=== PATIENT | female | born 1930 | race Caucasian/White ===

== ENCOUNTER 2017-02-09 05:28 | Observation (INO) | payer OTHER ==
[2017-02-09] VITALS (10 sets, daily range): BP systolic 110–147; BP diastolic 52–85
[~2017-02-09] VITALS: Ht 160 cm; Wt 59.9 kg
--- NOTE | ~2017-02-09 | O ---
[facility] [place] [address] OPERATIVE REPORT Name: NORA OAKLEY Room #: 402-P [facility] M.R.#: [id number] Admission: 02/09/17 Attend Phys: Gregory Denis MD Discharge: Date of : 34 Report #: [id number] THIS REPORT FOR: //name// CC: FAM stephanie Denis DATE OF SERVICE: 02/09/2017 PREOPERATIVE DIAGNOSIS: Right inguinal hernia. POSTOPERATIVE DIAGNOSIS: Right direct and indirect inguinal hernia. PROCEDURES PERFORMED: Repair of right inguinal hernia with large Prolene hernia system. ANESTHESIA: General. COMPLICATIONS: None. ESTIMATED BLOOD LOSS: 5 mL. PROCEDURE NOTE: With the patient under general anesthesia, the abdomen was prepped and draped in sterile fashion. IV antibiotic was administered. Timeout was performed. A transverse incision was made in the right lower quadrant just above the pubic bone. This was about a 5 cm incision. After incising through the skin and subcutaneous tissue, scarpas layer was entered. The superficial vein was clamped and ligated with 3-0 Vicryl tie. The external oblique fascia was isolated. An external oblique was opened along the length ____ opening the external ring. The bulgy tissue was identified. It was very difficult to identify normal anatomy and it seemed like the whole floor was markedly attenuated and dissipated. The bulge was both in the direct and indirect component. The round ligament was actually very thin and pushed off anteriorly and this was isolated. The ilioinguinal nerve was found and preserved. The round ligament was isolated, clamped proximally and distally and then ligated with 3-0 Vicryl tie. Dissecting of the posterior wall which was quite thin allowed entrance to the properitoneal space. The pubic bone was isolated. The artery was palpated and identified. The vein was not visualized. The femoral region was examined, there was no femoral hernia. The hernia content was freed from the medial edge of the defect and then also laterally. The small vein was found and this had to be divided. There was some distortion of the tissue because of the quite thinness of the wall. After freeing everything from the hernia content, the hernia was able to be reduced behind the wall in the properitoneal space. Hemostasis was checked and noted to be at excellent. The large hernia Prolene system was used. The circular piece was then placed over the hernia content in the properitoneal space. A single anchoring stitch was [address] [address] OPERATIVE REPORT Name: NORA OAKLEY Room #: 402-P [facility] Tonny Robertson#: [id number] Admission: 02/09/17 Attend Phys: Gregory Denis MD Discharge: Date of : 34 Report #: [id number] placed medial inferiorly to the pubic tubercle area. This was a 0-Prolene suture. Rest of the circular part was opened up in the properitoneal space and noted to be quite supportive and keeping things from popping out. The oval anterior part of the mesh was then laid over the remaining of the floor, which was ____. The oval portion was then sutured to the pubic tubercle, inguinal ligament in a running fashion inferior and laterally. Medially and superiorly the mesh was sutured to the fascia over the anterior rectus sheath. This was performed in an interrupted fashion. Care was taken to avoid the hypogastric nerve. The mesh was able to be completely covering the internal ring and the defect well. Irrigation was performed. External oblique fascia was closed with 3-0 PDS. Subq was also closed with 3-0 PDS in an interrupted fashion. Skin was closed with 5-0 PDS. Dermabond was applied, 4 x 4, OpSite used for dressing. The patient tolerated the procedure well. By: [id number] Gregory Denis MD /nt
[~2017-02-09 05:28] MED LIST: ASPIR 8181 MG PO; CENTRUM SILVER1 EAC4 PO; CLARITIN10 MG PO; COREG PO; COZAAR100 MG PO; FLONASE 0.05%50 MCG NASAL; LIPITOR 20 MG T20 M1 PO; LUTEIN-ZEAXANT1 EACH PO; MOBIC15 MG PO; NORVASC10 MG PO; OMEPRAZOLE40 MG PO; STOOL SOFTENER100 M1 PO; SYNTHROID25 MCG PO; TRAMADOL 50 MG50 MG PO; VESICARE 5 MG TA5 MG PO; XALATAN2.5 ML OPHTHALMIC
[2017-02-10 03:06] VITALS: BP 124/80
[2017-02-10 08:00] VITALS: BP 112/52
[2017-02-10] MEDS ORDERED: NORCO 5-325 TA1 EACH PO (11:47)
[2017-02-10 11:54] VITALS: BP 112/52
== END 2017-02-10 13:42 | disposition home or self-care (01) ==
LOC: TBA 05:28 → OR 05:28 → 4N 12:46 → OR 14:29 → 4N 02-10 13:42
DX: K40.90 Unilateral inguinal hernia, without obstruction or gangrene, not specified as recurrent (principal); I10 Essential (primary) hypertension; K21.9 Gastro-esophageal reflux disease without esophagitis
CPT/HCPCS: 50010; 50101; 50411; 50555; 52061; 53307; 54118; 56462; 56525; 56526; 56527; 62110; 62900; 70005

== ENCOUNTER → 2020-04-14 | Outpatient (CLI) | payer OTHER ==
[~2020-04-14] MED LIST changes: +NORCO 5-325 TA1 EACH PO
== END ==
LOC: SJCVCIMAG 07:29
PROVIDERS: ATTEND Internal Medicine Cardiovascular Disease
DX: I72.3 Aneurysm of iliac artery (principal); I73.9 Peripheral vascular disease, unspecified; I25.10 Atherosclerotic heart disease of native coronary artery without angina pectoris; I10 Essential (primary) hypertension; E78.00 Pure hypercholesterolemia, unspecified; Z79.899 Other long term (current) drug therapy; Z87.891 Personal history of nicotine dependence

== ENCOUNTER → 2020-04-23 | Outpatient (CLI) | payer OTHER ==
[~2020-04-23] VITALS: Ht 157.5 cm; Wt 54.9 kg
[~2020-04-23] MED LIST changes: +LUCENTIS0.3 MG/0.1 INTRAVITR; +MYRBETRIQ25 MG PO; +PLAVIX 75 MG TA75 MG PO; +PRAVASTATIN SOD20 MG PO; +RESTASIS MULTI5.5 ML OPHTHALMIC
[2020-04-23 10:27] VITALS: BP 147/62
[2020-04-23 11:26] LABS: HEMATOCRIT 35.2 % (37.0-47.0); HEMOGLOBIN 11.6 gm/dL (12.0-15.0); MCH 29.3 pg (26.0-34.0); MCHC 33.1 g/dL (28.0-37.0); MCV 88.7 fL (80.0-100.0); RBC 3.97 mil/uL (4.20-5.00); RDW 13.3 % (10.5-14.5)
[2020-04-23 11:34] LABS: CALCIUM 8.7 mg/dL (8.5-10.1)
== END | disposition home or self-care (01) ==
LOC: CATH 08:56
PROVIDERS: Nuclear Medicine Nuclear Cardiology; ATTEND Internal Medicine Cardiovascular Disease
DX: I70.213 Atherosclerosis of native arteries of extremities with intermittent claudication, bilateral legs (principal); I70.8 Atherosclerosis of other arteries; I72.3 Aneurysm of iliac artery; I70.1 Atherosclerosis of renal artery; I10 Essential (primary) hypertension; E78.00 Pure hypercholesterolemia, unspecified; K21.9 Gastro-esophageal reflux disease without esophagitis; H40.9 Unspecified glaucoma; Z98.890 Other specified postprocedural states; Z79.899 Other long term (current) drug therapy; Z98.41 Cataract extraction status, right eye; Z98.42 Cataract extraction status, left eye; Z90.49 Acquired absence of other specified parts of digestive tract; Z88.2 Allergy status to sulfonamides

== ENCOUNTER → 2020-07-27 | Outpatient (CLI) | payer OTHER ==
[2020-07-27 10:53] LABS: CREATININE 0.9 mg/dL (0.6-1.0)
== END ==
LOC: CAT 09:50
PROVIDERS: ATTEND Nuclear Medicine Nuclear Cardiology
DX: I25.10 Atherosclerotic heart disease of native coronary artery without angina pectoris (principal); R91.8 Other nonspecific abnormal finding of lung field; J98.11 Atelectasis; J43.9 Emphysema, unspecified; I70.8 Atherosclerosis of other arteries; I72.3 Aneurysm of iliac artery

== ENCOUNTER → 2020-07-27 | Outpatient (CLI) | payer OTHER | LOC: SJCVC 10:46 | PROVIDERS: ATTEND Nuclear Medicine Nuclear Cardiology | DX: I72.3 Aneurysm of iliac artery (principal); I73.9 Peripheral vascular disease, unspecified; I25.10 Atherosclerotic heart disease of native coronary artery without angina pectoris; I10 Essential (primary) hypertension; E78.00 Pure hypercholesterolemia, unspecified; I77.9 Disorder of arteries and arterioles, unspecified; E03.9 Hypothyroidism, unspecified; Z90.49 Acquired absence of other specified parts of digestive tract; Z90.710 Acquired absence of both cervix and uterus; Z98.890 Other specified postprocedural states; Z79.82 Long term (current) use of aspirin; Z79.899 Other long term (current) drug therapy; Z87.891 Personal history of nicotine dependence; Z82.49 Family history of ischemic heart disease and other diseases of the circulatory system ==

== ENCOUNTER → 2020-12-01 | Outpatient (CLI) | payer OTHER | LOC: SJCVCIMAG 08:12 | PROVIDERS: ATTEND Internal Medicine Cardiovascular Disease | DX: R94.31 Abnormal electrocardiogram [ECG] [EKG] (principal); I08.3 Combined rheumatic disorders of mitral, aortic and tricuspid valves; I27.20 Pulmonary hypertension, unspecified; I65.23 Occlusion and stenosis of bilateral carotid arteries; I25.10 Atherosclerotic heart disease of native coronary artery without angina pectoris; I73.9 Peripheral vascular disease, unspecified; E78.00 Pure hypercholesterolemia, unspecified; I10 Essential (primary) hypertension; I72.3 Aneurysm of iliac artery; E03.9 Hypothyroidism, unspecified; Z88.2 Allergy status to sulfonamides; Z87.891 Personal history of nicotine dependence; Z79.82 Long term (current) use of aspirin; Z79.899 Other long term (current) drug therapy ==

== ENCOUNTER → 2021-04-13 | Outpatient (CLI) | payer OTHER | LOC: SJCVC 10:56 | PROVIDERS: ATTEND Internal Medicine Cardiovascular Disease | DX: I44.2 Atrioventricular block, complete (principal); R94.31 Abnormal electrocardiogram [ECG] [EKG]; I73.9 Peripheral vascular disease, unspecified; I72.3 Aneurysm of iliac artery; I25.10 Atherosclerotic heart disease of native coronary artery without angina pectoris; I10 Essential (primary) hypertension; I77.9 Disorder of arteries and arterioles, unspecified; E78.00 Pure hypercholesterolemia, unspecified; I25.2 Old myocardial infarction; I65.23 Occlusion and stenosis of bilateral carotid arteries; M19.90 Unspecified osteoarthritis, unspecified site; E03.9 Hypothyroidism, unspecified; Z82.49 Family history of ischemic heart disease and other diseases of the circulatory system; Z88.2 Allergy status to sulfonamides; Z87.891 Personal history of nicotine dependence; Z79.899 Other long term (current) drug therapy; Z79.82 Long term (current) use of aspirin ==